=== PATIENT | male | born 1985 | race Two or more races ===

== ENCOUNTER 2024-04-10 15:02 | Emergency (ER) | payer BC ==
[~2024-04-10] VITALS: Ht 172.7 cm; Wt 83.9 kg
[2024-04-10] MEDS ORDERED: ATORVASTATIN CA20 MG (15:49)
[2024-04-10] MEDS ORDERED: KETOROLAC TROMETHAMINE 30 MG VIAL IM STA (16:51)
[2024-04-10] MEDS ORDERED: ORPHENADRINE CITRATE 30 MG/ML AMPUL IM STA (16:51)
[2024-04-10] MEDS ORDERED: CELEBREX200MG PO (19:26)
[2024-04-10] MEDS ORDERED: METAXALONE800 MG PO (19:26)
== END 2024-04-10 20:33 | disposition home or self-care (01) ==
LOC: ER 15:03
DX: S13.9XXA Sprain of joints and ligaments of unspecified parts of neck, initial encounter (principal); X58.XXXA Exposure to other specified factors, initial encounter; Y93.9 Activity, unspecified; Y92.9 Unspecified place or not applicable; Y99.9 Unspecified external cause status